=== PATIENT | female | born 1935 | race Native Hawaiian/Other Pacific Islander ===

== ENCOUNTER 2019-12-18 12:35 | Outpatient (CLI) | payer MEDICARE ==
--- NOTE | 2019-12-18 16:01 | Ultrasound Report ---
ULTRASOUND-GUIDED RIGHT BREAST AND AXILLARY LYMPH NODE BIOPSY WITH MARKER HISTORY: Right breast mass and abnormal axillary lymph node. COMPARISON: 11/05/2019, 11/25/2019. CONSENT: Technique, risks and alternatives were discussed with the patient and informed written conse nt obtained. PROCEDURE: The right breast mass at the 3:30 position, 6 cm from the nipple, was identified sonographically. The overlying skin was cleansed with Betadine. The skin and superficial soft tissues were anesthetized with a small amount of buffered 1% lidocaine. The deeper soft tissues were anesthetized with buffere d 1% lidocaine with epinephrine. A small dermatotomy was created and a 14-gauge spring loaded core b iopsy needle was advanced to the mass. Under real time sonographic guidance, multiple core specimen samples were acquired to submit to [facility] pathology for analysis. At the conclusion of the procedure, a Sec[employer] biopsy marker was deploye d within the residual mass. Manual pressure was applied at the biopsy site to achieve hemostasis. The abnormal right axillary lymph node was identified sonographically and the overlying skin was noah nsed with chloro prep. 1% lidocaine was infused at the biopsy site. Using an 18-gauge spring loaded c ore biopsy needle, a total of 4 core samples were obtained. A biopsy marker was placed to kinjal the ly mph node. Manual pressure was applied at the biopsy site to achieve hemostasis. Patient tolerated the procedure well and no immediate complications were identified. The incision margins were approximated with Steri-Strips. Post procedure care instructions were administered in both verbal and written forms. The patient voic ed understanding and left the breast center in stable, satisfactory condition. IMPRESSION 1. Technically successful ultrasound-guided right breast biopsy at the 3:30 position with placement of a biopsy marker. 2. Technically successful ultrasound-guided biopsy of abnormal right axillary lymph node with placem ent of a biopsy marker. NOTE: On prior outside imaging multiple additional areas of suspected multicentric malignancy were id entified within the right breast. It was recommended that this largest site be biopsied for pathologi c evaluation. Patient reports having appointment with Dr. Simmons on 12/25/2019 to review the pathology results. Signer Name: Mohinder Ceron MD Signed: 12/18/2019 3:56 PM Workstation Name: [id number]
--- NOTE | 2019-12-23 11:36 | Mammography Report ---
DIGITAL DIAGNOSTIC MAMMOGRAM WITH CAD, 12/18/2019 INDICATION: For clip placement after ultrasound-guided needle biopsy. TECHNIQUE: Digital right mammographic imaging was performed. This examination was interpreted with the benefit of Computer-aided Detection analysis. COMPARISON: 11/05/2019 outside mammogram. FINDINGS: Breast Density: The breasts are heterogeneously dense, which may obscure small masses. A biopsy clip is identified within the multilobulated inner mass. IMPRESSION: Concordant clip placement after ultrasound-guided needle biopsy. Follow up recommendation: No recall. Post biopsy imaging. A "normal" or negative report should not discourage follow up or biopsy of a clinically significant f inding. A written summary of these findings will be mailed to the patient. The patient will be entered into a mammography reporting system which will generate a reminder letter for the patient's next appointmen t at the appropriate interval. According to the [employer], yearly mammograms are recommended starting at age 40 and continuing as long as a woman is in good health. Breast MRI is recommended for women with an ilda roximately 20-25% or greater lifetime risk of breast cancer, including women with a strong family his tory of breast or ovarian cancer and women who have been treated for Hodgkin's disease. Signer Name: Carlito Castillo MD Signed: 12/23/2019 11:31 AM Workstation Name: [id number]
== END 2019-12-18 12:36 | disposition home or self-care (01) ==
LOC: SPVWC 12:35
PROVIDERS: ATTEND Surgery
DX: N63.14 Unspecified lump in the right breast, lower inner quadrant (principal); D05.11 Intraductal carcinoma in situ of right breast; I89.8 Other specified noninfective disorders of lymphatic vessels and lymph nodes
CPT/HCPCS: 38505; 76942; 88305; 88341; 88342

== ENCOUNTER 2020-11-09 13:30 | Outpatient (CLI) | payer MEDICARE ==
--- NOTE | 2020-11-09 14:29 | Mammography Report ---
DIGITAL DIAGNOSTIC MAMMOGRAM WITH CAD , 11/09/2020 CLINICAL INFORMATION / INDICATION: The patient has a personal history of right breast cancer treated with mastectomy. She reports no new left breast symptoms. TECHNIQUE: Digital left mammographic imaging was performed. This examination was interpreted with the benefit of Computer-aided Detection analysis. COMPARISON: 11/05/2019, 06/20/2018 FINDINGS: Breast Density: The breasts are heterogeneously dense, which may obscure small masses. No dominant mass, suspicious calcifications or architectural distortion in the left breast. IMPRESSION: No mammographic evidence of malignancy. Follow up recommendation: Routine yearly BI-RADS Category 1: Negative. A "normal" or negative report should not discourage follow up or biopsy of a clinically significant f inding. A written summary of these findings will be mailed to the patient. The patient will be entered into a mammography reporting system which will generate a reminder letter for the patient's next appointmen t at the appropriate interval. According to the [employer], yearly mammograms are recommended starting at age 40 and continuing as long as a woman is in good health. Breast MRI is recommended for women with an ilda roximately 20-25% or greater lifetime risk of breast cancer, including women with a strong family his tory of breast or ovarian cancer and women who have been treated for Hodgkin's disease. Signer Name: Elise Boston MD Signed: 11/09/2020 2:24 PM Workstation Name: [id number]
== END 2020-11-09 13:31 | disposition home or self-care (01) ==
LOC: SPVWC 13:30
PROVIDERS: ATTEND Surgery
DX: C50.312 Malignant neoplasm of lower-inner quadrant of left female breast (principal)

== ENCOUNTER 2021-04-13 11:17 | Outpatient (CLI) | payer MEDICARE ==
--- NOTE | 2021-04-13 15:36 | Mammography Report ---
DEXA BONE DENSITY SCAN INDICATION / CLINICAL INFORMATION: ON AROMATASE THERAPY Z79.811. 85 years Female COMPARISON: None available. LUMBAR SPINE, L1-L4: - Bone mineral density (BMD) = 1.151 g/cm2. - T-score = 0 - Z-score = not calculated Change (%) since most recent prior (if available): None available. LEFT HIP, NECK : - Bone mineral density (BMD) = 0.752 g/cm2. - T-score = -1.4 - Z-score = not calculated Change (%) since most recent prior (if available): None available. IMPRESSION: 1. WHO Classification: Osteopenia. Fracture Risk: Increased. Note: 10-Year Fracture Risk (FRAX) not reported. This DEXA unit lacks FRAX functionality. BMD Reporting Guidelines (ISCD, 2015) BMD Reporting in Postmenopausal Women and in Men Age 50 and Older - T-scores are preferred. - The WHO densitometric classification is applicable. BMD Reporting in Females Prior to Menopause and in Males Younger Than Age 50 - Z-scores, not T-scores, are preferred. This is particularly important in children. - A Z-score of -2.0 or lower is defined as below the expected range for age, and a Z-score above -2.0 is within the expected range for age. - Osteoporosis cannot be diagnosed in men under age 50 on the basis of BMD alone. - The WHO diagnostic criteria may be applied to women in the menopausal transition. http://www.iscd.org/official-positions/8654-lizz-ibauvmtz-positions-adult/ Signer Name: Manohar Kline MD Signed: 04/13/2021 3:31 PM Workstation Name: [id number]
== END 2021-04-13 11:18 | disposition home or self-care (01) ==
LOC: SPVWC 11:17
PROVIDERS: ATTEND Internal Medicine Hematology & Oncology
DX: C50.311 Malignant neoplasm of lower-inner quadrant of right female breast (principal); M85.88 Other specified disorders of bone density and structure, other site; Z79.811 Long term (current) use of aromatase inhibitors
CPT/HCPCS: 77080

== ENCOUNTER 2022-04-17 11:04 | Outpatient (CLI) | payer MEDICARE ==
--- NOTE | 2022-04-17 12:08 | Mammography Report ---
DIGITAL DIAGNOSTIC MAMMOGRAM WITH CAD , 04/17/2022 CLINICAL INFORMATION / INDICATION: Patient has history of right breast cancer treated with mastectomy . TECHNIQUE: Digital left mammographic imaging was performed. This examination was interpreted with the benefit of Computer-aided Detection analysis. COMPARISON: Prior mammogram 11/05/2019 FINDINGS: Breast Density: The breasts are heterogeneously dense, which may obscure small masses. No dominant mass, suspicious calcifications or architectural distortion in the left breast. Overall, no interval change from the 2020 mammogram. IMPRESSION: No mammographic evidence of malignancy. Follow up recommendation: Routine yearly screening mammogram. - The ACR recommends yearly screening MRI in patients with a personal history of breast cancer who win ve dense fibroglandular tissue as well in patients who were diagnosed with breast cancer under the ag e of 50. BI-RADS Category 1: NEGATIVE. A "normal" or negative report should not discourage follow up or biopsy of a clinically significant f inding. A written summary of these findings will be mailed to the patient. The patient will be entered into a mammography reporting system which will generate a reminder letter for the patient's next appointmen t at the appropriate interval. According to the [employer], yearly mammograms are recommended starting at age 40 and continuing as long as a woman is in good health. Breast MRI is recommended for women with an ilda roximately 20-25% or greater lifetime risk of breast cancer, including women with a strong family his tory of breast or ovarian cancer and women who have been treated for Hodgkin's disease. Signer Name: Bere Sarah MD Signed: 04/17/2022 12:04 PM Workstation Name: [id number]
== END 2022-04-17 11:05 | disposition home or self-care (01) ==
LOC: MAMMO 11:04
PROVIDERS: ATTEND Internal Medicine Hematology & Oncology
DX: C50.311 Malignant neoplasm of lower-inner quadrant of right female breast (principal)